=== PATIENT | male | born 1960 | race Caucasian/White ===

== ENCOUNTER 2016-11-17 19:44 | Emergency (ER) | payer OTHER ==
[~2016-11-17] VITALS: Ht 177.8 cm; Wt 113.9 kg
[~2016-11-17 19:44] MED LIST: ESCITALOPRAM20 MG PO
--- NOTE | 2016-11-17 20:44 | ED THROAT/DENTAL COMPLAINT ---
History of Present Illness General Chief Complaint: Sore Throat, Dental Pain Stated Complaint: PT HAS ABCESS ON THE LEFT SIDE OF THE MOUTH Source: patient Exam Limitations: no limitations Vital Signs & Intake/Output Vital Signs & Intake/Output Vital Signs Date Time Temp Pulse Resp B/P B/P Pulse O2 O2 Flow FiO2 Mean Ox Delivery Rate 11/173 99.6 70 20 124/71 96 Room Air 11/17 1955 98.4 76 20 132/79 95 Room Air ED Intake and Output 11/18 0000 11/17 1200 Intake Total 100 Output Total Balance 100 Intake, IV 100 Patient 251 lb Weight Weight Reported by Patient Measurement Method Allergies Coded Allergies: NO KNOWN ALLERGIES (11/17/16) Reconcile Medications Amoxicillin/Potassium Clav (Augmentin 875-125 Tablet) 875 MG-125 MG TABLET 1 TAB PO BID dental abscess Escitalopram Oxalate 20 MG TABLET 1 TAB PO DAILY MENTAL HEALTH (Reported) Hydrocodone/Acetaminophen (Vicodin 5-300 MG Tablet) 5 MG-300 MG TABLET 1 TAB PO Q6 PRN pain Ibuprofen (Advil) 200 MG CAPSULE 3 CAP PO PRN PAIN (Reported) Ibuprofen 800 MG TABLET 1 TAB PO Q8H PRN pain Loratadine (Claritin) 10 MG TABLET 1 TAB PO PRN ALLERGIES (Reported) [place]-3 Fatty Acids/Fish Oil (Fish Oil 1,000 MG Softgel) (Unknown Strength) CAPSULE (Unknown Dose) PO DAILY SUPPLEMENT (Reported) Ranitidine HCl (Zantac) (Unknown Strength) TABLET (Unknown Dose) PO DAILY GI (Reported) Trazodone HCl (Unknown Strength) TABLET (Unknown Dose) UNKNOWN (Reported) Triage Note: REPORT LEFT UPPER JAW PAIN. SIGNIFICANT SWELLING NOTED. REPORTS 10/10 PAIN. Triage Nurses Notes Reviewed? yes HPI: Patient is a 56-year-old male presents complaining of dental abscess. Patient reports left maxillary swelling worsening over the past 2 days. Pain is moderate, worsens with palpation. Patient has been taking 600 mg of ibuprofen every 6 hours with minimal improvement. Patient denies fevers, chills, difficulty swallowing, dyspnea. Past History Travel History Traveled to [place] past 21 day No Medical History Any Pertinent Medical History? see below for history Psychiatric: anxiety, depression Surgical History Surgical History: non-contributory Psychosocial History What is your primary language Serbian Tobacco Use: Quit >30 days ago Family History Hx Contributory? No Review of Systems Review of Systems Constitutional: Denies: chills, fever. EENTM: Reports: mouth pain, tooth pain. Respiratory: Denies: cough, short of breath. Cardiovascular: Denies: chest pain. GI: Denies: abdominal pain, vomiting. Skin: Denies: rash. Neurological/Psychological: Reports: headache. Hematologic/Endocrine: Reports: no symptoms. Immunologic/Allergic: Reports: no symptoms. Physical Exam Physical Exam General Appearance: well developed/nourished, alert, awake Head: moderate left maxillary facial swelling Eyes: Bilateral: normal appearance, PERRL, EOMI. Ears: Left: canal normal, Tympanic normal. Nose: normal inspection Mouth/Throat: see diagram Neck: normal inspection, supple, left anterior cervical lymphadenopathy Cardiovascular/Respiratory: no respiratory distress Back: normal inspection, normal range of motion Neurologic/Psych: no motor/sensory deficits, awake, alert, oriented x 3, normal gait, normal mood/affect Skin: warm/dry Diagram Dental: 1) chipped tooth, gingival swelling and erythema Core Measures ACS in differential dx? No Severe Sepsis Present: No Septic Shock Present: No Progress Differential Diagnosis: carious tooth, Ludwigs angina, odontogenic abscess Plan of Care: Orders Procedure Date/time Status CBC WITHOUT DIFFERENTIAL 11/17 2049 Complete Laboratory Tests 11/17/16 2100: CBC w Diff NO MAN DIFF REQ, RBC 5.08, MCV 84.9, MCH 29.0, RDW 12.9, MPV 6.9 L, Gran % 77.7 H, Lymphocytes % 14.1 L, Monocytes % 6.7, Eosinophils % 1.4, Basophils % 0.1, Absolute Granulocytes 8.2 H, Absolute Lymphocytes 1.5, Absolute Monocytes 0.7 H, Absolute Eosinophils 0.1, Absolute Basophils 0, PUBS MCHC 34.2 Patient nontoxic appearing. Results of complete blood count cell count discussed with patient. Patient administered a dose of IV antibiotics and will start on oral antibiotics. Patient instructed to return immediately if worsening. Appears stable for discharge. (TAMIKO FRANKLIN) Departure Departure Disposition: HOME OR SELF CARE Condition: Stable Clinical Impression Primary Impression: Dental abscess Referrals: David CASPER MD (PCP/Family) TAMIKO FAYE MD Additional Instructions: Follow up with Dr. Faye(oral surgeon) or with one of the dental clinics listed in your discharge paperwork if no improvement within 2 days. Return to the ER if fevers, increasing swelling or worsening of symptoms. Departure Forms: Customer Survey General Discharge Information Prescriptions: Current Visit Scripts Amoxicillin/Potassium Clav (Augmentin 875-125 Tablet) 1 TAB PO BID #20 TAB Ibuprofen 1 TAB PO Q8H PRN pain #30 TAB Hydrocodone/Acetaminophen (Vicodin 5-300 MG Tablet) 1 TAB PO Q6 PRN pain #10 TAB
[2016-11-17 21:13] LABS: ABSOLUTE BASOPHIL COUNT 0 /CUMM (0.0-0.2); ABSOLUTE EOSINOPHIL COUNT 0.1 /CUMM (0.0-0.7); ABSOLUTE GRANULOCYTE CT 8.2 /CUMM (1.4-6.5); ABSOLUTE LYMPH COUNT 1.5 /CUMM (1.2-3.4); ABSOLUTE MONOCYTE COUNT 0.7 /CUMM (0.10-0.60); BASOPHIL % 0.1 % (0.0-2.0); EOSINOPHIL % 1.4 % (0-5); GRANULOCYTE % 77.7 % (42.2-75.2); HEMATOCRIT 43.1 % (42-52); MEAN CORPUSCULAR HGB CONC 34.2 G/DL (33.0-37.0); MEAN CORPUSCULAR VOLUME 84.9 FL (80.0-94.0); MEAN PLATELET VOLUME 6.9 FL (7.4-10.4); PLATELET COUNT 185 /CUMM (130-400); RBC DISTRIBUTION WIDTH 12.9 % (11.5-14.5); RED BLOOD CELL CT 5.08 /CUMM (4.70-6.10); WHITE BLOOD CELL COUNT 10.6 /CUMM (4.8-10.8)
[2016-11-17] MEDS ORDERED: ESCITALOPRAM OX20 MG PO (21:34)
[2016-11-17] MEDS ORDERED: TRAZODONE HCL50 M1 (21:35)
[2016-11-17] MEDS ORDERED: ADVIL200 M1 PO (21:35)
[2016-11-17] MEDS ORDERED: CLARITIN10 M1 PO (21:36)
[2016-11-17] MEDS ORDERED: FISH OIL 1,0001 EAC4 PO (21:36)
[2016-11-17] MEDS ORDERED: ZANTAC150 M1 PO (21:37)
[2016-11-17] MEDS ORDERED: IBUPROFEN800 M1 PO (21:52)
[2016-11-17] MEDS ORDERED: VICODIN 5-3001 EACH PO (21:52)
[2016-11-17] MEDS ORDERED: AUGMENTIN 875-1 EACH PO (21:52)
[2016-11-17 21:53] VITALS: BP 124/71
== END 2016-11-17 21:58 ==
LOC: ERH 19:44
PROVIDERS: Physician Assistant
DX: K04.7 Periapical abscess without sinus (principal)
CPT/HCPCS: 96374

== ENCOUNTER 2016-11-18 11:40 | Emergency (ER) | payer OTHER ==
[~2016-11-18] VITALS: Ht 177.8 cm; Wt 113.9 kg
[~2016-11-18 11:40] MED LIST changes: +ADVIL200 M1 PO; +AUGMENTIN 875-1 EACH PO; +CLARITIN10 M1 PO; +ESCITALOPRAM OX20 MG PO; +FISH OIL 1,0001 EAC4 PO; +IBUPROFEN800 M1 PO; +TRAZODONE HCL50 M1; +VICODIN 5-3001 EACH PO; +ZANTAC150 M1 PO
--- NOTE | 2016-11-18 12:22 | ED THROAT/DENTAL COMPLAINT ---
History of Present Illness General Chief Complaint: Sore Throat, Dental Pain Stated Complaint: DENTAL ABCESS (SEEN LAST PM) Source: patient, old records Exam Limitations: no limitations Vital Signs & Intake/Output Vital Signs & Intake/Output Vital Signs Date Time Temp Pulse Resp B/P B/P Pulse O2 O2 Flow FiO2 Mean Ox Delivery Rate 11/18 1443 97.9 68 18 146/82 94 Room Air 11/18 1143 97.8 71 18 154/90 98 Room Air Allergies Coded Allergies: NO KNOWN ALLERGIES (11/17/16) Reconcile Medications Amoxicillin/Potassium Clav (Augmentin 875-125 Tablet) 875 MG-125 MG TABLET 1 TAB PO BID dental abscess Escitalopram Oxalate 20 MG TABLET 1 TAB PO DAILY MENTAL HEALTH (Reported) Hydrocodone/Acetaminophen (Vicodin 5-300 MG Tablet) 5 MG-300 MG TABLET 1 TAB PO Q6 PRN pain Ibuprofen (Advil) 200 MG CAPSULE 3 CAP PO PRN PAIN (Reported) Ibuprofen 800 MG TABLET 1 TAB PO Q8H PRN pain Loratadine (Claritin) 10 MG TABLET 1 TAB PO PRN ALLERGIES (Reported) [place]-3 Fatty Acids/Fish Oil (Fish Oil 1,000 MG Softgel) (Unknown Strength) CAPSULE (Unknown Dose) PO DAILY SUPPLEMENT (Reported) Ranitidine HCl (Zantac) (Unknown Strength) TABLET (Unknown Dose) PO DAILY GI (Reported) Trazodone HCl (Unknown Strength) TABLET (Unknown Dose) UNKNOWN (Reported) Triage Note: 56 YO MALE TO ER C/O DENTAL ABCESS ON R SIDE OF MOUTH. STATES HE WAS SEEN HERE LAST PM AND WAS GIVEN IV ANTIBIOTICS AND TOLD TO REUTRN ITS IT GETS WORSE. STATES WOKE THIS AM AND "IT WAS TWICE THE SIZE" Triage Nurses Notes Reviewed? yes Onset: 2 days Duration: day(s):, constant, continues in ED, getting worse Timing: recent history Severity: severe Modifying Factors: Worsens With: cold therapy, eating. HPI: The patient lost #15 tooth filling in the distant past. 2 days prior to admission he complains of pain and swelling to the left maxillary area. He was seen last night prescribed IV antibiotics and discharged with oral antibiotics with analgesia. He awoke with increased swelling and erythema over the left cheek extending to the bridge of his nose with continued pain. He denies fever chills nausea vomiting diarrhea abdominal pain chest pain shortness breath headache dysuria bleeding. Past History Travel History Traveled to [place] past 21 day No Medical History Any Pertinent Medical History? 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 No Review of Systems Review of Systems Constitutional: Reports: no symptoms. EENTM: Reports: see HPI, tooth pain. Respiratory: Reports: no symptoms. Cardiovascular: Reports: no symptoms. GI: Reports: no symptoms. Genitourinary: Reports: no symptoms. Musculoskeletal: Reports: no symptoms. Skin: Reports: see HPI, rash. Neurological/Psychological: Reports: no symptoms. Hematologic/Endocrine: Reports: no symptoms. Immunologic/Allergic: Reports: no symptoms. All Other Systems: Reviewed and Negative Physical Exam Physical Exam General Appearance: well developed/nourished, alert, awake, anxious, moderate distress Head: atraumatic, swelling, tenderness Eyes: Bilateral: normal appearance, PERRL, EOMI. Ears: Bilateral: canal normal, Tympanic normal. 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 No Severe Sepsis Present: No Septic Shock Present: No Progress Differential Diagnosis: carious tooth, odontogenic abscess, stomatitis/ gingivitis Plan of Care: Orders Procedure Date/time Status BLOOD CULTURE 11/18 1218 Active COMPREHENSIVE METABOLIC PANEL 11/18 121 Complete CBC WITHOUT DIFFERENTIAL 11/18 1217 Complete Laboratory Tests 11/18/16 1241: Anion Gap 10, Estimated GFR > 60, BUN/Creatinine Ratio 18.8, Glucose 117 H, Calcium 9.4, Total Bilirubin 0.7, AST 27, ALT 34, Alkaline Phosphatase 70, Total Protein 7.4, Albumin 4.3, Globulin 3.1, Albumin/Globulin Ratio 1.4, CBC w Diff NO MAN DIFF REQ, RBC 4.89, MCV 83.5, MCH 29.3, RDW 13.0, MPV 7.3 L, Gran % 64.1 , Lymphocytes % 24.1, Monocytes % 8.6, Eosinophils % 1.6, Basophils % 1.6, Absolute Granulocytes 5.2, Absolute Lymphocytes 1.9, Absolute Monocytes 0.7 H, Absolute Eosinophils 0.1, Absolute Basophils 0.1, PUBS MCHC 35.0 Microbiology 11/18 1244 BLOOD: Blood Culture - RECD 11/18 1240 BLOOD: Blood Culture - RECD Diagnostic Imaging: Viewed by Me: CT Scan. Discussed w/RAD: CT Scan. Radiology Impression: 1. A 0.5 x 1.3 x 1.1 cm subperiosteal fluid collection along the left lateral aspect of the maxilla, adjacent to the left second molar tooth. This is indicative of an odontogenic abscess. There is diffuse soft tissue stranding surrounding this fluid collection with associated induration. Soft tissue stranding and induration is also visualized along the left face. No additional odontogenic abscesses are identified. 2. Poor dentition with periapical lucencies visualized surrounding several maxillary and mandibular teeth, as noted above. Large cavities are also visualized within these teeth, as noted above. Comments: Discussed OMFS, can see patient before 4PM. Departure Departure Time of Disposition: 1440 Disposition: HOME OR SELF CARE Condition: Stable Clinical Impression Primary Impression: Dental abscess Referrals: David CASPER MD (PCP/Family) Additional Instructions: Go to the [facility] before 4PM. They are expecting you. [facility] Departure Forms: Customer Survey General Discharge Information
[2016-11-18 12:51] LABS: ABSOLUTE BASOPHIL COUNT 0.1 /CUMM (0.0-0.2); ABSOLUTE EOSINOPHIL COUNT 0.1 /CUMM (0.0-0.7); ABSOLUTE GRANULOCYTE CT 5.2 /CUMM (1.4-6.5); ABSOLUTE LYMPH COUNT 1.9 /CUMM (1.2-3.4); ABSOLUTE MONOCYTE COUNT 0.7 /CUMM (0.10-0.60); BASOPHIL % 1.6 % (0.0-2.0); EOSINOPHIL % 1.6 % (0-5); GRANULOCYTE % 64.1 % (42.2-75.2); HEMATOCRIT 40.8 % (42-52); MEAN CORPUSCULAR HGB 29.3 PG (27.0-31.0); MEAN CORPUSCULAR VOLUME 83.5 FL (80.0-94.0); MEAN PLATELET VOLUME 7.3 FL (7.4-10.4); PLATELET COUNT 173 /CUMM (130-400); RED BLOOD CELL CT 4.89 /CUMM (4.70-6.10); WHITE BLOOD CELL COUNT 8.1 /CUMM (4.8-10.8)
--- NOTE | 2016-11-18 14:28 | CT SCAN REPORT ---
EXAMINATION: CT MAXILLOFACIAL WITH CONTRAST CLINICAL INFORMATION: Toothache. Specifically, the patient is experiencing pain along the 15th tooth with associated left facial swelling, pain and erythema. COMPARISON: None. TECHNIQUE: Multidetector helical imaging was performed in the axial plane with generation of coronal and sagittal reformatted images. The examination was performed after the administration of 100 mL of Optiray 320 intravenous contrast DLP: 870 mGy-cm FINDINGS: Contrast-enhanced CT of the face demonstrates a small subperiosteal fluid collection along the left lateral aspect of the maxilla, adjacent to the left-sided second molar. This subperiosteal fluid collection measures approximately 0.5 x 1.3 x 1.1 cm in transverse, AP and craniocaudal dimensions respectively. There is diffuse soft tissue stranding and induration along the left premalar soft tissues as well as along the soft tissues of the left face, notably adjacent to the left maxilla. This constellation of findings is indicative of an odontogenic abscess arising from the 15th (left second molar). No additional subperiosteal fluid collection/odontogenic abscesses are identified. Poor dentition with periapical lucencies visualized surrounding the second premolar and first molar teeth of the right maxilla, with large cavities identified within these teeth. Periapical lucencies are also visualized surrounding the left maxillary second molar as well as the right mandibular first molar tooth. Large cavities are identified within the right mandibular second premolar and first molar teeth. Evaluation of the paranasal sinuses demonstrates significant mucoperiosteal thickening of the left maxillary sinus. There is mild mucosal thickening of the bilateral anterior and posterior ethmoid air cells, the right maxillary sinus as well as the bilateral frontal sinuses. The remaining imaged paranasal sinuses and imaged portions of the mastoid air cells are well aerated. No acute maxillofacial fractures are identified. The mandibular condyles articulate appropriately within the bilateral temporomandibular joints. The orbital roofs and orbital floors are intact. There is no acute osseous abnormality involving the imaged portions of the cervical spine. IMPRESSION: 1. A 0.5 x 1.3 x 1.1 cm subperiosteal fluid collection along the left lateral aspect of the maxilla, adjacent to the left second molar tooth. This is indicative of an odontogenic abscess. There is diffuse soft tissue stranding surrounding this fluid collection with associated induration. Soft tissue stranding and induration is also visualized along the left face. No additional odontogenic abscesses are identified. 2. Poor dentition with periapical lucencies visualized surrounding several maxillary and mandibular teeth, as noted above. Large cavities are also visualized within these teeth, as noted above.
[2016-11-18 14:43] VITALS: BP 146/82
== END 2016-11-18 14:54 ==
LOC: ERH 11:40
PROVIDERS: Emergency Medicine
DX: K04.7 Periapical abscess without sinus (principal)
CPT/HCPCS: 87040; 96365; 96375; J0131; Q9965

== ENCOUNTER 2017-12-22 17:56 | Emergency (ER) | payer OTHER ==
[~2017-12-22] VITALS: Ht 182.9 cm; Wt 81.6 kg
[2017-12-22 18:00] VITALS: BP 137/86
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
[2017-12-22] MEDS ORDERED: IBUPROFEN600 M1 PO (19:27)
[2017-12-22] MEDS ORDERED: CYCLOBENZAPRINE10 M1 PO (19:27)
== END 2017-12-22 19:31 ==
LOC: ERH 17:56
DX: S16.1XXA Strain of muscle, fascia and tendon at neck level, initial encounter (principal); M54.5 Low back pain; V89.2XXA Person injured in unspecified motor-vehicle accident, traffic, initial encounter
CPT/HCPCS: 72100